=== PATIENT | male | born 1965 | race Two or more races ===

== ENCOUNTER 2024-05-31 04:09 | Emergency (ER) | payer OTHER ==
[~2024-05-31] VITALS: Ht 167.6 cm; Wt 79.4 kg
[~2024-05-31 04:09] MED LIST: NEOMYCIN OP; POLY OP; ZITHROMAX500 MG PO; [UNRECOGNIZED DRUG - OTHER] OP
[2024-05-31] MEDS ORDERED: LOSARTAN-HCTZ1 EACH PO (04:24)
[2024-05-31] MEDS ORDERED: LEVOTHYROXINE112 MC1 PO (04:24)
[2024-05-31] MEDS ORDERED: ONDANSETRON 4 MG TAB.RAPDIS PO STA (05:22)
[2024-05-31] MEDS ORDERED: ONDANSETRON 4 MG TAB.RAPDIS PO ONE (05:33)
[2024-05-31] MEDS ORDERED: ONDANSETRON ODT4 MG PO (05:52)
[2024-05-31] MEDS ORDERED: OMEPRAZOLE40 MG PO (05:52)
== END 2024-05-31 06:02 ==
LOC: ER 04:12
DX: R10.13 Epigastric pain (principal); I10 Essential (primary) hypertension